=== PATIENT | female | born 1965 | race Caucasian/White ===

== ENCOUNTER 2020-06-01 12:14 | Emergency (ER) | payer OTHER ==
[2020-06-01 14:35] LABS: HEMOGLOBIN 16.6 gm/dl (12.3-15.3); RED BLOOD COUNT 5.38 M/UL (4.00-5.10); WHITE BLOOD COUNT 5.8 K/UL (4.5-11.0)
[2020-06-01 15:14] LABS: BUN/CREATININE RATIO 17 (0-10)
[2020-06-01] MEDS ORDERED: ZOFRAN ODT 4 MG4 MG PO (16:35)
== END 2020-06-01 18:59 | disposition home or self-care (01) ==
LOC: ER1 12:14
PROVIDERS: Emergency Medicine
DX: U07.1 COVID-19 (principal); I10 Essential (primary) hypertension; E11.9 Type 2 diabetes mellitus without complications; Z88.0 Allergy status to penicillin
CPT/HCPCS: 71045; 80053; 82550; 82553; 83690; 83874; 84484; 85025; 99284; M0239